=== PATIENT | female | born 1975 | race Caucasian/White ===

== ENCOUNTER 2019-03-03 01:53 | Emergency (ER) | payer SELFPAY ==
[2019-03-03] MEDS ORDERED: Fluorescein Opthalmic Strip ONE (02:08)
[2019-03-03] MEDS ORDERED: Proparacaine 0.5% Opth 15 ML BOT ONE (02:08)
== END 2019-03-03 02:35 | disposition home or self-care (01) ==
LOC: ERS 01:53
DX: H10.9 Unspecified conjunctivitis (principal)
CPT/HCPCS: 99283

== ENCOUNTER 2019-04-12 05:28 | Inpatient (IN) | payer SELFPAY ==
[2019-04-12 06:14] LABS: #Eosinphils 0.1 thou/uL (0.0-0.7); #Monocytes 1.4 thou/uL (0.11-0.59); #Neutrophils 12.4 thou/uL (1.40-6.50); %Basophils 0.2 % (0.0-1.0); %Eosinophils 0.8 % (0.0-10.0); %Lymphocytes 17.8 % (21.0-51.0); %Monocytes 8.4 % (0.0-10.0); %Neutrophils 72.9 % (42.0-75.0); Hemoglobin 15.3 g/dL (12.0-16.0); Mean Corpuscular HGB CONC 34.1 g/dL (32.0-36.0); Mean Corpuscular Hemoglobin 29.6 pg (27.0-31.0); Mean Corpuscular Volume 86.8 fL (78.0-98.0); Mean Platelet Volume 6.9 fL (7.4-10.4); Platelet Count 292 thou/uL (130-400); RBC Distribution Width 12.2 % (11.5-14.5); Red Blood Cell (RBC) Count 5.16 mill/uL (4.20-5.40); White Blood Cell (WBC) Count 17.1 thou/uL (4.8-10.8)
[2019-04-12] MEDS ORDERED: Ketorolac Tromethamine 30 MG/ML VIAL ONE ×2 (06:22→07:44)
[2019-04-12] MEDS ORDERED: Ondansetron PF 4 MG/2 ML Vial ONE ×2 (06:22→07:44)
[2019-04-12] MEDS ORDERED: Morphine 4 MG/ML VIAL ONE ×2 (06:22→07:44)
[2019-04-12 06:27] LABS: ALT (SGPT) 12 U/L (8-55); AST (SGOT) 10 U/L (5-34); Albumin 4.1 g/dL (3.5-5.0); Alkaline Phosphatase 90 U/L (40-150); Anion Gap 12 mmol/L (10-20); BUN (Urea Nitrogen) 16 mg/dL (7.0-18.7); Bilirubin, Total 0.4 mg/dL (0.2-1.2); Calc. Creatinine Clearance 0 mL/min (70-130); Calcium 9.7 mg/dL (7.8-10.44); Carbon Dioxide 25 mmol/L (22-29); Chloride 101 mmol/L (98-107); Estimated GFR-MDRD 89; Globulin 3.1 g/dL (2.4-3.5); Glucose 105 mg/dL (70-105); Lipase 9 U/L (8-78); Protein, Total 7.2 g/dL (6.0-8.3); Sodium 134 mmol/L (136-145)
[2019-04-12 07:28] LABS: BHCG - Serum Negative (NEGATIVE); Pregs Control Background? CLEAR/WHITE (CLR/WHITE); Pregs Control Bar Appear? YES (CONTROL BAR)
[2019-04-12 07:34] LABS: Bacteria/HPF None Seen HPF (None Seen); Bilirubin Negative (Negative); Blood, Urine 1+ (Negative); Clarity Clear (Clear); Glucose, Urine (Dipstick) Normal (Negative); Leukocyte Negative Leu/uL (Negative); Mucous/LPF 1+ LPF (<2+); Nitrite Negative (Negative); Protein, Urine (Dipstick) 20 mg/dL (Neg-Trace); Urobilinogen Normal mg/dL (Less than 2); WBC/HPF 0-3 HPF (0-3)
--- NOTE | 2019-04-12 08:08 | CT ---
CT ABDOMEN WITH CONTRAST CT PELVIS WITH CONTRAST: DATE: 04/12/2019 HISTORY: 43-year-old female with generalized abdominal pain COMPARISON: None available TECHNIQUE: IV injection of iodinated contrast media: administered. Oral contrast media:Not administered FINDINGS: Lung bases clear. Colon: Severe mural thickening and mural edema of entire ascending colon from cecum to hepatic flexur e edema fluid at right paracolic gutter extending into Morison's pouch. No involvement of the rest of the colon identified. Kidneys, abdominal aorta, pancreas, liver, and spleen, demonstrate no major pathology. No small bowel dilation. Small amount of free fluid within the dependent portion of pelvic cavity. No pneumoperitoneum. The appendix is diffusely mildly thickened, but this is probably a spillover from the colitis. IMPRESSION: Acute, somewhat severe colitis involving the right colon.
--- NOTE | 2019-04-12 08:15 | RAD ---
RADIOGRAPH CHEST 1 VIEW: DATE: 04/12/2019 HISTORY: 43-year-old female with chest pain FINDINGS: The visualized lung cohn are clear. The cardiomediastinal silhouette and hilar shadows are normal. The lateral costophrenic angles are sharp. The osseous structures appear normal. There is no pneumothorax. IMPRESSION: Negative.
[2019-04-12] MEDS ORDERED: Piperacillin/Tazobactam 3.375 GM VIAL ONE (09:19)
[2019-04-12] MEDS ORDERED: Ondansetron ODT 4 MG TAB SL PRN (11:01)
[2019-04-12] MEDS ORDERED: Ondansetron PF 4 MG/2 ML Vial IVP PRN ×2 (11:01→14:09)
[2019-04-12 11:03] VITALS: BMI 23.8
[2019-04-12] MEDS ORDERED: Morphine 2 MG/ML SYRINGE SLOW IVP PRN (11:03)
[2019-04-12] MEDS: Dextrose 5 %-0.45 % NaCl 1,000 ML IV SCH ×2 (12:11→21:08)
[2019-04-12] MEDS ORDERED: Acetaminophen 325 MG TAB PO PRN (14:09)
[2019-04-12] MEDS ORDERED: Ondansetron ODT 4 MG TAB PO PRN (14:09)
[2019-04-12] MEDS ORDERED: Calcium Carbonate 500 MG ChewTAB PO PRN (14:09)
--- NOTE | 2019-04-12 14:27 | HP ---
PRIMARY CARE PHYSICIAN: VALERIO Salter CHIEF COMPLAINT: Abdominal discomfort. HISTORY OF PRESENT ILLNESS: The patient is a 43-year-old female, who presented to the emergency room with abdominal discomfort that has been ongoing for past couple of days. Initially, the pain was epigastric that later migrated to the right lower quadrant. It is intermittent, moderate to severe in intensity. It is crampy in character. She also felt nauseous, however, denies any vomiting. She has loose bowel movement up to two times a day over the last 2 to 3 days. She ate some pork chops a couple of days prior to the onset of symptoms. She denies any fever, chills, or sick contacts. No recent travel reported. She denies any weight loss. No recent antibiotic use. No EGD or colonoscopy in the past. PAST MEDICAL HISTORY: Reviewed with the patient and none. PAST SURGICAL HISTORY: Reviewed with the patient and none. ALLERGIES: NO KNOWN DRUG ALLERGIES. CURRENT HOME MEDICATIONS: Reviewed with the patient and none. SOCIAL HISTORY: The patient currently lives at home with her family. She denies any smoking, alcohol, or drug use. FAMILY HISTORY: Mother with diabetes. Crohn disease runs on her mother's side. REVIEW OF SYSTEMS: All other review of systems was reviewed and was found negative. PHYSICAL EXAMINATION: VITAL SIGNS: Temperature 98.3, respiration 18, pulse rate of 101, blood pressure 138/88, O2 saturation 99% on room air. GENERAL: A 43-year-old female in no apparent distress at rest. HEENT: Head, atraumatic and normocephalic. Sclerae are anicteric. Moist mucous membranes. No oral lesion. NECK: Supple. No JVD appreciated. No carotid bruit. LUNGS: Clear to auscultation bilaterally. No wheezing, rales, or rhonchi. HEART: S1 and S2 present. Regular rate and rhythm. No rubs or gallops. ABDOMEN: Soft. Mild tenderness in the right lower quadrant on superficial palpation. No rebound or guarding. No costovertebral angle tenderness. EXTREMITIES: No edema or calf tenderness. NEUROLOGIC: Grossly nonfocal. She moves all 4 extremities. PSYCHIATRIC: Alert, awake, and oriented x3. LABORATORY FINDINGS: WBC 17.1, hemoglobin 15.3. Sodium 134, potassium 4.0, BUN 16, creatinine 0.72. testing negative. Urinalysis was negative for wbc. IMAGING STUDIES: Chest x-ray by my review was negative for infiltrate or edema. CT scan of the abdomen and pelvis by my review showed severe mural thickening of the entire ascending colon from cecum to hepatic flexure. IMPRESSION: 1. Sepsis secondary to severe right-sided colitis, suspected infectious. Other possibility could be inflammatory bowel disease. Ischemic appears to be less likely. She also denies any recent antibiotic use. 2. Mild hyponatremia. PLAN: The patient will be monitored on the medical floor. We will start her on IV Zosyn 3.375 q.6 hours hourly. IV fluids. Clear liquid diet. Stool workup. Gastroenterology consultation. Probiotics. Repeat labs in a.m. Plan of care was discussed with the patient and the family in detail. They stated understanding. Job ID: [id number]
[2019-04-12] MEDS ORDERED: Piperacillin/Tazobactam 3.375 GM in Sodium Chloride 0.9% 100 ML IVPB SCH (15:00)
[2019-04-12] MEDS ORDERED: ISOVUE-370 76%-LOCM 1 ML ONE (15:23)
[2019-04-12] MEDS: Piperacillin/Tazobactam 3.375 GM in Sodium Chloride 0.9% 100 ML IVPB SCH ×2 (15:34→21:20)
[2019-04-12] MEDS: Famotidine 20 MG TAB PO SCH (21:19)
[2019-04-12] MEDS: Saccharomyces boulardii 250 MG CAP PO SCH (21:19)
[2019-04-12] MEDS: Sodium Chloride 0.9% 1,000 ML IV SCH (21:20)
--- NOTE | 2019-04-12 23:06 | CON ---
DATE OF CONSULTATION: 04/12/2019 CHIEF COMPLAINT: Abdominal pain. HISTORY OF PRESENT ILLNESS: Ms. Esquivel developed onset of severe aching epigastric pain two days ago. The pain was constant and she did have associated diarrhea several times on the first day that the pain started. She had several watery stools on that day. She has had no fever. She has had some nausea without vomiting. No blood in the stool. The pain, however, progressed and localized more to the right lower quadrant. She went onto the emergency room this morning for further evaluation. CT scan of the abdomen and pelvis was performed that showed inflammatory changes of the cecum and right colon. She only had a couple of bowel movements yesterday which were soft, but not runny. She has had no bowel movement today as of yet. She has not had fever with this. Eating does not really affect the pain. She has not been around any other sick contacts that she is aware of. No chest pain or shortness of breath. PAST MEDICAL HISTORY: Negative. PAST SURGICAL HISTORY: Negative. FAMILY HISTORY: Positive for Crohn disease in her uncle. Family history is negative for GI malignancy. SOCIAL HISTORY: She smokes a pack per week. No drug use in the last 10 years, but does have a remote history of cocaine use. No history of IV drug use. No alcohol. ALLERGIES: NO KNOWN DRUG ALLERGIES. MEDICATIONS: Prior to admission, she takes Excedrin two tablets maybe once per week for headaches at most. She has taken no medications specifically for migraine headaches or other medicines over the counter. No control. REVIEW OF SYSTEMS: Negative x10 systems reviewed except as stated in the history of present illness. LABORATORY DATA: Creatinine 0.72, bilirubin 0.4, AST 10, ALT 12, alkaline phosphatase 90, albumin 4.1. Serum test is negative. White blood cell count 17.1, hemoglobin 15.3, and platelets 292. IMAGING: CT scan of the abdomen and pelvis shows inflammatory changes of the cecum and ascending colon. There is mild reactive lymphadenopathy in the area. The images are late arterial phase. There is some question of a mild SMA narrowing with good opacification distal to that. The veins are not well visualized as venous phase imaging of the contrast was not obtained with this study. IMPRESSION: 1. Right lower quadrant abdominal pain. She has CT imaging consistent with acute right-sided colitis. Differential diagnosis includes acute infectious colitis, which is the most likely scenario. Second would be acute ischemic colitis. She does not have any obvious risk factors for this other than smoking a pack per week. Her mother did have peripheral vascular disease and coronary disease and has had multiple stents. Her mother was a heavy smoker. Mesenteric vein thrombosis cannot be evaluated with the CT images obtained due to lack of venous phase imaging of the contrast. However, if she did have mesenteric vein thrombosis, I would expect a more progression of her pain and currently she has been clinically improving. Third on the differential would be inflammatory bowel disease. She does have an uncle with Crohn disease. She has no chronic symptoms to suggest this. 2. Abnormal CT scan of the abdomen. RECOMMENDATIONS: 1. Stool studies to include culture, ova and parasite, and lactoferrin and C diff. 2. If the stool studies ultimately are negative, given the more isolated right-sided colitis, colonoscopy might be indicated to evaluate to help differentiate between ischemic colitis or inflammatory process versus other acute process such as infectious. If findings more suggestive of ischemic colitis are identified, then follow up CT angiogram with delayed venous phases as well would be the next step if the stool studies come back positive for salmonella or shigella or Campylobacter or other obvious source, then no further diagnostic testing will be necessary. 3. Given her elevated white blood cell count, she is on Zosyn IV. 4. In the meantime, we will await stool studies and if these come back negative, consider colonoscopy in a couple of days. Job ID: [id number]
[2019-04-13] MEDS: Piperacillin/Tazobactam 3.375 GM in Sodium Chloride 0.9% 100 ML IVPB SCH ×4 (03:15→22:28)
[2019-04-13] MEDS: Sodium Chloride 0.9% 1,000 ML IV SCH ×4 (06:09→22:31)
[2019-04-13 07:40] LABS: Amphetamine Detected (NotDetected); Barbiturates Screen Not Detected (NotDetected); Benzodiazepine Screen Not Detected (NotDetected); Cocaine Metabolite Screen Not Detected (NotDetected); Medtox Control Line Valid? VALID (VALID); Medtox Reader # READER 4; Methadone Not Detected (NotDetected); Methamphetamine Detected (NotDetected); Opiate Screen Detected (NotDetected); Oxycodone Screen Not Detected (NotDetected); Phencyclidine (PCP) Not Detected (NotDetected); THC/Cannabinoid Screen Not Detected (NotDetected); Tricyclic Screen Not Detected (NotDetected)
[2019-04-13] MEDS: Famotidine 20 MG TAB PO SCH ×2 (08:00→21:40)
--- NOTE | 2019-04-13 16:34 | PRG ---
DATE OF SERVICE: 04/13/2019 SUBJECTIVE: Ms. Esquivel has minimal abdominal pain today. She is tolerating liquids and crackers today. She has had no stool output since admission. OBJECTIVE: VITAL SIGNS: Temperature 98.4, pulse 90, blood pressure 118/75. GENERAL: She is in no acute distress. Alert and oriented x3. LUNGS: Clear to auscultation bilaterally. HEART: Regular rate and rhythm without murmur. ABDOMEN: Soft, nontender, and nondistended. Bowel sounds are present. EXTREMITIES: No lower extremity edema. IMPRESSION: Right lower quadrant abdominal pain and right-sided colitis by CT scan. This is ischemic colitis versus infectious colitis. Given the unilateral distribution of the inflammatory changes of the colon, I would now favor ischemic colitis given that her tox screen was positive for methamphetamine. The patient denies any methamphetamine use, however, and is unsure how this exposure could have happened. She states that it has been years that she use methamphetamines. CT scan was more of an arterial phase CT, and there was some question of minimal narrowing of the SMA, but no significant obvious stenosis present. Certainly, this still could have been an acute infectious colitis. Her stool studies have not been able to be obtained because she has had no stool output since admission. Again, this would be consistent with ischemic colitis with abrupt resolution of symptoms after administration of IV fluids. RECOMMENDATIONS: 1. I would complete a 5-day course of antibiotics. She has been on Zosyn here in the hospital, so she could transition to Augmentin to finish out a 5-day course in total including what she received here in the hospital. 2. Anticipate discharge home tomorrow. 3. I recommend followup in GI clinic in 1 month. At that point, we can schedule colonoscopy to evaluate the right side of the colon given the inflammatory changes noted during this acute hospital stay. If she develops any recurrent similar symptoms in the future, then we will need to repeat the urine tox screen and obtain CT angiogram followed by venous phase imaging as well to look at the mesenteric vessels. 4. I will sign off. Please call if GI can be of assistance. Job ID: [id number]
[2019-04-13] MEDS: Saccharomyces boulardii 250 MG CAP PO SCH (21:40)
--- NOTE | 2019-04-13 21:54 | PDOC.HOSPP ---
- Subjective Encounter Date: 04/13/19 Encounter Time: 11:00 Subjective: Patient seen and examined for Colitis. Abd pain improving. No diarrhea. No new complaints. No overnight events - Objective Vital Signs & Weight: Vital Signs (12 hours) Temp Pulse Resp BP Pulse Ox 04/13/19 20:00 98.7 F 84 18 132/83 99 04/13/19 11:30 98.4 F 90 18 118/75 97 Weight Weight 143 lb I&O: 04/12/19 04/13/19 04/14/19 06:59 06:59 06:59 Intake Total 1745 1847 Balance 1745 1847 Result Diagrams: 04/12/19 06:06 04/12/19 06:06 Hospitalist ROS - Review of Systems Respiratory: denies: cough, dry, shortness of breath, hemoptysis, SOB with excertion, pleuritic pain, sputum, wheezing, other Cardiovascular: denies: chest pain, palpitations, orthopnea, paroxysmal noc. dyspnea, edema, light headedness, other - Medication Medications: Active Medications Generic Name Dose Route Start Last Admin Trade Name Freq PRN Reason Stop Dose Admin Famotidine 20 mg 04/12/19 21:00 04/13/19 21:40 Pepcid PO 20 mg BID RACIEL Administration Sodium Chloride 1,000 mls @ 100 mls/hr 04/12/19 21:00 04/13/19 16:59 Normal Saline 0.9% IV Not Given .Q10H RACIEL Piperacillin Sod/Tazobactam 100 mls @ 200 mls/hr 04/12/19 15:00 04/13/19 15: 45 Sod 3.375 gm/ Sodium Chloride IVPB 100 mls 0300,0900,1500,2100 RACIEL Administration Saccharomyces Boulardii 250 mg 04/12/19 21:00 04/13/19 21:40 Florastor PO 250 mg HS RACIEL Administration - Exam General Appearance: NAD Heart: RRR, no rubs Respiratory: CTAB, no rales Gastrointestinal: soft, non-distended, normal bowel sounds, tender to palpation (mild right sided tenderness) Extremities: no edema Neurological: no new deficit Hosp A/P - Plan DVT proph w/SCDs IMPRESSION: 1. Sepsis secondary to severe right-sided colitis, suspected infectious. 2. Mild hyponatremia. 3. UDS positive for Methamphetamine 4. Dehydration PLAN: Cont IV Zosyn 3.375 q.6 hours Reduce IV fluids. Advance diet Stool workup pending Cont Probiotics.
[2019-04-14] MEDS: Piperacillin/Tazobactam 3.375 GM in Sodium Chloride 0.9% 100 ML IVPB SCH ×2 (03:09→09:42)
[2019-04-14] MEDS: Famotidine 20 MG TAB PO SCH (09:39)
--- NOTE | 2019-04-14 10:56 | DIS ---
DATE OF ADMISSION: 04/12/2019 DATE OF DISCHARGE: 04/14/2019 DISCHARGE DISPOSITION: Home. FOLLOWUP: 1. Follow up with primary care physician, Vale Jimenez, in 1 week. 2. Follow up with Gastroenterology, Dr. Bills, in 1 to 2 weeks. ALLERGIES: THE PATIENT DENIES ANY DRUG ALLERGIES. DISCHARGE MEDICATIONS: 1. Ciprofloxacin 250 mg twice daily for next 3 days. 2. Flagyl 500 mg 3 times daily for next 3 days. 3. Florastor 250 mg daily. The patient was seen and examined on the day of discharge. Denies any new complaints. Abdominal pain has completely resolved. BRIEF HOSPITAL COURSE: The patient is a 43-year-old female, who presented to the hospital with abdominal discomfort along with nausea and diarrhea. CT scan of the abdomen and pelvis showed severe mural thickening of the entire ascending colon from cecum to hepatic flexure. She was placed on IV Zosyn with IV fluids. WBC count on admission was 17.1. Please note that the patient refused blood draw on the subsequent days. Her urine drug screen was positive for methamphetamine. Her symptoms have significantly improved. She never had diarrhea in the hospital. Stool workup was not done due to above reason. She was advised to follow up with GI Clinic as an outpatient for possible colonoscopy. Lifestyle modification was emphasized. If she develops any recurrent similar symptoms in the future, then the patient will need a repeat urine tox screen and obtain a CT angiogram followed by venous phase imaging as well as to look at the mesenteric vessel per GI recommendation. FINAL DIAGNOSES: 1. Sepsis secondary to severe right-sided colitis, suspected infectious. 2. Mild hyponatremia. 3. Dehydration. 4. Urine drug screen positive for methamphetamine. Please note that the patient refused blood draws yesterday as well as today on the day of discharge. Job ID: [id number]
[2019-04-14 11:10] VITALS: BP 140/78; TEMP 98.9
== END 2019-04-14 11:12 | disposition home or self-care (01) | DRG 872 ==
LOC: ERS 05:28 → T4-A 08:49
PROVIDERS: ADMIT Internal Medicine; ATTEND Internal Medicine
DX: A41.9 Sepsis, unspecified organism (principal); E87.1 Hypo-osmolality and hyponatremia; A09 Infectious gastroenteritis and colitis, unspecified; F17.200 Nicotine dependence, unspecified, uncomplicated; E86.0 Dehydration; Z53.29 Procedure and treatment not carried out because of patient's decision for other reasons
CPT/HCPCS: 36415; 71045; 74177; 80053; 80306; 81003; 81015; 83690; 84703; 85025; 96365; 96375; J1885; J2270; J2405; J2543; J3490; Q9966

== ENCOUNTER 2022-04-12 16:08 | Emergency (ER) | payer SELFPAY ==
[~2022-04-12 16:08] MED LIST: Iopamidol-370 76% 500 ML 1 ML ONE
[2022-04-12 16:43] LABS: #Lymphocytes 0.8 thou/uL (1.20-3.40); #Monocytes 1.1 thou/uL (0.11-0.59); #Neutrophils 13.7 thou/uL (1.40-6.50); %Eosinophils 0.1 % (0.0-10.0); %Lymphocytes 4.8 % (21.0-51.0); Hemoglobin 13.2 g/dL (12.0-16.0); Mean Corpuscular HGB CONC 34.6 g/dL (32.0-36.0); Mean Corpuscular Hemoglobin 31.8 pg (27.0-31.0); Mean Corpuscular Volume 91.8 fL (78.0-98.0); Mean Platelet Volume 6.7 fL (7.4-10.4); Platelet Count 240 thou/uL (130-400); RBC Distribution Width 12.1 % (11.5-14.5); Red Blood Cell (RBC) Count 4.17 mill/uL (4.20-5.40); White Blood Cell (WBC) Count 15.6 thou/uL (4.8-10.8)
[2022-04-12] MEDS ORDERED: Acetaminophen 500 MG TAB ONE (16:43)
[2022-04-12] MEDS ORDERED: Piperacillin/Tazobactam 4.5 GM VIAL ONE (16:43)
[2022-04-12 16:54] LABS: INR-International Normal Ratio 1.2; PTT 35.1 sec (22.9-36.1); Prothrombin Time 14.9 sec (12.0-14.7)
[2022-04-12 17:04] LABS: ALT (SGPT) 68 U/L (8-55); AST (SGOT) 68 U/L (5-34); Albumin 3.8 g/dL (3.5-5.0); Alkaline Phosphatase 129 U/L (40-110); Anion Gap 15 mmol/L (10-20); BUN (Urea Nitrogen) 9 mg/dL (7.0-18.7); Bilirubin, Total 1.4 mg/dL (0.2-1.2); Calc. Creatinine Clearance 0 mL/min (70-130); Carbon Dioxide 18 mmol/L (22-29); Chloride 104 mmol/L (98-107); Estimated GFR 110; Globulin 3.1 g/dL (2.4-3.5); Glucose 151 mg/dL (70-105); Potassium 3.3 mmol/L (3.5-5.1); Protein, Total 6.9 g/dL (6.0-8.3); Sodium 134 mmol/L (136-145)
[2022-04-12 19:07] LABS: Pregnancy Test - Urine (BHCG) Negative (Negative); Pregu Control Background? CLEAR/WHITE (CLR/WHITE); Pregu Control Bar Appear? YES (CONTROL BAR); Specific Gravity 1.008 (1.002-1.036)
[2022-04-12 19:09] LABS: Bacteria/HPF 1+ HPF (None Seen); Bilirubin Negative (Negative); Blood, Urine 2+ (Negative); Clarity Clear (Clear); Glucose, Urine (Dipstick) Normal (Negative); Ketone, Urine Negative (Negative); Leukocyte 500 Leu/uL (Negative); Nitrite 2+ (Negative); Protein, Urine (Dipstick) Negative (Neg-Trace); RBC/HPF 0-3 HPF (0-3); Specific Gravity, Urine 1.008 (1.002-1.036); Squamous Epithelial 0-3 HPF (0-3); Urobilinogen Normal mg/dL (Less than 2); WBC/HPF Greater than 50 HPF (0-3); pH, Urine 6.5 (5.0-9.0)
== END 2022-04-12 20:19 | disposition home or self-care (01) ==
LOC: ERS 16:08
DX: N12 Tubulo-interstitial nephritis, not specified as acute or chronic (principal); R74.01 Elevation of levels of liver transaminase levels; F17.210 Nicotine dependence, cigarettes, uncomplicated
CPT/HCPCS: 36415; 36416; 74177; 80053; 81003; 81015; 81025; 83605; 85025; 85610; 85730; 87040; 87077; 87086; 87149; 87186; 93005; 94760; 96365; J2543; Q9967